=== PATIENT | male | born 1950 | race Caucasian/White ===

== ENCOUNTER 2024-04-04 21:36 | Inpatient (IN) | payer MEDICARE, OTHER, SELFPAY ==
[2024-04-04 16:07] VITALS: BP 135/73
[2024-04-04 16:15] VITALS: BMI 25.1
[2024-04-04 16:45] LABS: % Basophils 0.4 % (0-2); % Eosinophils 0.1 % (0-6); % Immature Granulocytes 0.5 % (0-0.5); % Lymphocytes 1.2 % (20.5-51.1); % Monocytes 4.2 % (1.7-9.3); % Neutrophils 93.6 % (42.2-75.2); Absolute Immature Granulocytes 0.1 10^3/uL (0-0.05); Absolute Lymphocytes 0.1 10^3/uL (1.2-3.4); Absolute Monocytes 0.4 10^3/uL (0.1-0.6); Absolute Neutrophils 9.6 10^3/uL (1.4-6.5); Hematocrit 37.2 % (39.0-52.0); Hemoglobin 12.3 g/dL (13.0-18.0); Mean Corp Hgb Conc. 33.1 g/dL (33.0-37.0); Mean Corpuscular Hgb 27.1 pg (27.0-31.0); Mean Corpuscular Volume 81.9 fL (80.0-94.0); Nucleated Red Blood Cells % 0 % (-); Platelet Count 215 10^3/uL (130-400); Red Blood Cell Count 4.54 10^6/uL (4.70-6.10); Red Cell Dist. Width 14.7 % (11.5-14.5); White Blood Cell Count 10.3 10^3/uL (4.8-10.8)
[2024-04-04 16:58] LABS: ALT (SGPT) 24 U/L (0-50); AST (SGOT) 26 U/L (17-59); Albumin 4.5 g/dl (3.5-5.0); Alkaline Phosphatase 66 U/L (38-126); Blood Urea Nitrogen 26 mg/dl (9-20); Calcium 9.5 mg/dl (8.4-10.2); Carbon Dioxide 19 mmol/L (22-30); Chloride 101 mmol/L (98-107); Estimated Creatinine Clearance 55 ml/min; Glucose 348 mg/dl (70-99); Potassium 5.3 mmol/L (3.5-5.1); Sodium 135 mmol/L (135-145); Total Bilirubin 0.9 mg/dl (0.2-1.3); eGFR 57.65
[2024-04-04 17:00] VITALS: BP 123/69
[2024-04-04 17:10] LABS: COVID-19 Antigen Negative (Negative)
[2024-04-04] MEDS: NSS 1000 IV ×2 (17:54→19:53)
[2024-04-04 18:00] VITALS: BP 118/60
--- NOTE | 2024-04-04 18:01 | ED.GENMED ---
History of Present Illness
General
Chief Complaint: Abdominal Symptoms
Source: patient and spouse
Exam Limitations: none
Time Seen by Provider: 04/04/24 17:40
Nursing documentation reviewed up to this point in time: agreed with
History of Present Illness
History of Present Illness:
73-year-old male with a past medical history of hypertension, hyperlipidemia, diabetes who presents to the ER for evaluation of abdominal pain. Patient reports rather abrupt onset around 4 AM and have been constant throughout the day. He reports
pain in the left lower quadrant does not radiate. No clear exacerbating or relieving factors noted. He reports associated nausea, vomiting, diarrhea�nonbloody. He denies any fever or chills. He denies any urinary symptoms. He denies having had
similar symptoms in the past. He denies any prior history of abdominal surgery although chart mentions history of hernia repair on the left.
Past History
Past History
ED Past Medical History: GERD, HTN, Hypercholesterolemia, IDDM and NIDDM
ED Past Surgical History: Other (Inguinal hernia repair)
Social History
Tobacco: Non-smoker
Drug: None
Personal:
Living: alone
Employment: Retired
Family History
Family History: Other (Noncontributory)
Review of Systems
Review of Systems
All Other Systems: ROS reviewed and negative except as documented in HPI and ROS
Constitutional: Denies fever or chills
Respiratory: Denies cough or trouble breathing
Cardiac: Denies chest pain
ABD/GI: Reports abdominal pain, nausea, vomiting and diarrhea; Denies bloody stools or black stools
: Denies dysuria, frequency or flank pain
Musculoskeletal: Denies neck pain or back pain
Neurological: Denies dizzy or headache
Phy Exam
Physical Exam
Physical Exam:
General: Awake, alert, oriented x3; no acute distress
Head: Normocephalic, atraumatic
Eyes: Conjunctiva normal, sclera anicteric
Throat: Airway intact, dry mucous membranes
Neck: Trachea midline, supple without meningismus
Lungs: Clear to auscultation bilaterally, no wheezing, rales, rhonchi
Heart: Tachycardia with regular rhythm, no murmurs, gallops, or rubs
Abd: Soft, non distended, focally tender in the left lower quadrant with no peritoneal signs, no abdominal masses
Back: No CVA tenderness
Neuro: No gross deficit
Extremities: Warm and well-perfused
Scores
Heart Failure Risk
Heart Failure Risk Score: Not Applicable
Heart Score for Chest Pain Patients
STEMI patient?: Not applicable
Withdrawal Assessment of Alcohol
Withdrawal Assessment Completed?: Not applicable
Course
Orders/Labs/Results
Orders:
Orders
04/04/24 16:09
EKG [Electrocardiogram (*1)] Urgent
Reason for Study: Fatigue / Weakness
EKG- Treatment ONCE
04/04/24 16:31
COVID-19 Antigen Urgent
Source: Nasal Swab
Complete Blood Count/With Diff Urgent
Comprehensive Metabolic Panel Urgent
Lipase Urgent
INF RAPID [Influenza A+B Rapid Molecular] Urgent
MICHAEL Source: Nasal Swab
Specimen Description:
Date Specimen was Collected: 04/04/24
Time Specimen was Collected: 16:27
04/04/24 17:45
Add On- LAB Urgent
Tests Added?: lipase
0.9% Sodium Chloride 1000 ml [Nss] 1,000 ml IV BOLUS
04/04/24 18:01
CT Abd/pelvis W Iv Cont Urgent
Comment:
Reason For Exam: LLQ abd pain and tenderness
04/04/24 19:38
Morphine Sulfate 4 mg IV NOW STA
Ondansetron Injectable [Zofran] 4 mg IV NOW STA
04/04/24 19:45
0.9% Sodium Chloride 1000 ml [Nss] 1,000 ml IV 125 mls/hr
Abnormal Lab Results
04/04/24
16:31
RBC 4.54 L 10^6/uL
(4.70-6.10)
Hgb 12.3 L g/dL
(13.0-18.0)
Hct 37.2 L %
(39.0-52.0)
RDW 14.7 H %
(11.5-14.5)
Abs Immat Gran (auto) 0.1 H 10^3/uL
(0-0.05)
Absolute Neuts (auto) 9.6 H 10^3/uL
(1.4-6.5)
Absolute Lymphs (auto) 0.1 L 10^3/uL
(1.2-3.4)
Neutrophils % 93.6 H %
(42.2-75.2)
Lymphocytes % 1.2 L %
(20.5-51.1)
Potassium 5.3 H mmol/L
(3.5-5.1)
Carbon Dioxide 19 L mmol/L
(22-30)
BUN 26 H mg/dl
(9-20)
Glucose 348 H mg/dl
(70-99)
04/04/24 16:31
04/04/24 16:31
Vital Signs
Initial and Last Documented VS:
Initial Vital Signs
Temp Pulse Resp BP Pulse Ox
37.9 C 114 26 135/73 97
04/04/24 16:07 04/04/24 16:07 04/04/24 16:07 04/04/24 16:07 04/04/24 16:07
Last Documented Vital Signs
Temp Pulse Resp BP Pulse Ox
37.9 C 112 22 118/60 95
04/04/24 16:07 04/04/24 18:00 04/04/24 18:00 04/04/24 18:00 04/04/24 18:00
MDM/Problems Addressed
Differential Diagnosis Includes:
Diverticulitis, UTI/pyelonephritis, nephrolithiasis, colitis, AAA less likely
MDM/Problems Addressed:
73-year-old male presents to the emergency room for evaluation of abdominal pain associate with nausea, vomiting, diarrhea started this morning has been constant. Tachycardic mild tachypnea otherwise normal vitals. Physical exam as above�notably
focally tender in the left lower quadrant. He had labs sent in triage including a CBC which shows top normal WBC with predominant neutrophils. CMP shows slight metabolic acidosis none anion gap likely from GI losses. He does have hyperglycemia
348. Potassium 5.3 marginally elevated. He is negative for COVID and flu. Will send for a CT abdomen pelvis. Check urinalysis. Treat pain and provide fluid resuscitation. Reassess after the above
CT abdomen pelvis shows signs consistent with acute gastroenteritis. Clinical reassessment patient still having pain, nausea�treat symptomatically. Heart rate remains elevated currently 112 despite IV fluids. He still appears mildly dehydrated.
Will continue with fluid resuscitation, admit for symptomatic treatment and continue fluids for acute dehydration in the setting of gastroenteritis. Case discussed with hospitalist.
*Radiology
Radiology exam reviewed: radiology read reviewed
*Pulse Oximetry
Patient hypoxic: no
*EKG
Interpreted by ED Provider?: Yes
Heart Rate: 116
Rate: tachycardiac
Rhythm: sinus and sinus tachycardia
Emmett: normal axis
Interval: normal interval and normal QT interval
QRS Pattern: normal QRS
Ischemia: no ischemia
*Critical Care Note
Total Time (30-74mins, 75-104mins- exclusive of procedures): Not Applicable
Data Reviewed
Review of Other/Old Records Reveals: Labs and Records
Source: patient and significant other
Patient Management
Discussion with other providers: Hospitalist (Discussed with hospitalist)
Escalation/DeEscalation of care consider admission/obs:
Admission indicated
ED Attending Note
-
Portions of this chart may have been created with voice recognition software.� Occasional wrong word or��sound alike� substitutions may have occurred due to the inherent limitations of voice recognition software.
Discharge Plan
Departure
Patient Disposition: Admit
Date of Disposition: 04/04/24
Time of Disposition: 19:47
Admit to doctor: Musa
Presentation/result/management discussed w/ accepting MD/DO: Hospitalist
Discharge Problem:
Acute dehydration, Acute hyperglycemia, Acute gastroenteritis
Prescriptions:
No Action
multivitamin Tablet
1 tab PO DAILY
metformin 500 mg Tablet
1,000 mg PO BID
lisinopril 20 mg Tablet
20 mg PO QPM
calcium carbonate 500 mg calcium (1,250 mg) Tablet
1,000 mg PO DAILY
pantoprazole 40 mg Tablet,Delayed Release (Dr/Ec)
40 mg PO DAILY
diphenhydramine HCl [Allergy] 25 mg Tablet
25 mg PO DAILY
sertraline 25 mg Tablet
25 mg PO DAILY
aspirin 81 mg Tablet,Chewable
81 mg PO QPM
iron 18 mg Tablet
65 mg PO DAILY
rosuvastatin 20 mg Tablet
20 mg PO DAILY
omega 0-pbp-gyx-fish oil [Fish Oil] 1,200 (144-216) mg Capsule
1 cap PO DAILY
insulin glargine [Lantus U-100 Insulin] 100 unit/mL Solution
50 unit SC QPM
epinephrine 0.3 mg/0.3 mL Auto-Injector
0.3 mg IM ONCE
Patient Comments:
pt states he never used yet, only needed in case of bee sting
ascorbic acid (vitamin C) [Vitamin C] 1,000 mg Tablet
1,000 mg PO DAILY
biotin 10,000 mcg Tablet,Chewable
10,000 mcg PO
ibuprofen 200 mg tablet
400 mg PO Q6HPRN PRN (Reason: moderate pain) Qty: 1 0RF
tramadol 50 mg tablet
50 mg PO Q6HPRN PRN (Reason: severe pain/breakthrough pain) Qty: 5 0RF
acetaminophen [Tylenol Extra Strength] 500 mg tablet
1,000 mg PO Q6HPRN PRN (Reason: mild pain) Qty: 1 0RF
ibuprofen 800 mg tablet
800 mg PO QIDPRN PRN (Reason: pain, fever) Qty: 30 0RF
Referrals:
Maxwell Mendoza MD [Family Provider] -
Interventions
Interventions:
*Risk Screen - Suicide Last Done: 04/04/24 17:22
*General Assessment Last Done: 04/04/24 17:22
*Neglect/Abuse Screening Last Done: 04/04/24 17:22
*ED COVID-19 Vaccine History Last Done: 04/04/24 16:07
UD-Sllpfe-Ukbgbellzl Assessment Last Done: 04/04/24 17:24
Discharge Date and Time
Print Language: NAURUAN
[2024-04-04 18:31] LABS: Lipase 73 U/L (23-300)
[2024-04-04] MEDS: ZOFRAN 4 MG IV (19:42)
[2024-04-04] MEDS: MORPHINE SULFATE 4 MG IV (19:42)
[2024-04-04] MEDS: TYLENOL 650 MG PO (20:03)
--- NOTE | 2024-04-04 20:10 | EDRN ---
Report received, introduced myself to patient, he had asked for pain meds, medicated as ordered by Dr. Colin, Dr. colin also back in to talk to patient about results and patient wants to stay, patient did ambulate to the restroom and back in bed,
re-checked patients temperature which was elevated, informed Dr. Colin and gave meds as ordered. Otherwise patient resting comfortably at this time.
--- NOTE | 2024-04-04 20:11 | HPS.HSE ---
Family Physician
-
Family Physician: Maxwell Mendoza
Chief Complaint
-
abdominal discomfort
History of Present Illness
Patient is a 73-year-old male with past medical history significant for hypertension, hyperlipidemia, CKD, iron deficiency anemia, DM II, and BPH who presented to [place] [facility] ED for evaluation of abdominal discomfort. Patient stated he woke up early
this morning at approximately 0430 with abdominal pain associated with nausea, emesis and diarrhea. He reports pain in the lower quadrants and does not radiate. Patient reports episode of the chills but unaware if he was febrile. He states he had
multiple episodes of emesis and diarrhea when he became significantly week and had EMS come to transport him for evaluation. Patient denies any aggravating or alleviating factors. Denies cough, shortness of breath, constipation or urinary symptoms.
Medical History
Past Medical History
Past Medical History: Reports Other
Additional Past Medical History:
hypertension
hyperlipidemia
CKD
iron deficiency anemia
DM II
BPH
Past Surgical History: Reports Other
Additional Past Surgical History:
inguinal hernia repair
Social History
Tobacco: Non-smoker
Alcohol: Occasional
Drug: None
Personal: Single
Living: With Roomate (girlfriend)
Employment: Retired
Family History
Family History: Not pertinent
Allergies / Home Medications
Allergies reflects when Allergies were last updated in [facility].
Home Medications with original date entered in [facility]
Allergy/Medication List:
Allergies
Allergy/AdvReac Type Severity Reaction Status Date / Time
bee pollen Allergy Anaphylaxis Verified 01/26/23 00:15
bee venom protein (honey bee) Allergy Anaphylaxis Verified 01/26/23 00:15
Home Medications
aspirin 81 mg chewable tablet 81 mg PO HS 04/28/22
calcium carbonate 500 mg PO DAILY 04/28/22
insulin glargine 100 unit/mL subcutaneous solution (Lantus U-100 Insulin) 20 - 28 unit SC HS 04/28/22
lisinopril 20 mg tablet 20 mg PO HS 04/28/22
omega 8-sbq-igy-fish oil 1,200 mg (144 mg-216 mg) capsule (Fish Oil) 1 cap PO DAILY 04/28/22
pantoprazole 40 mg tablet,delayed release 40 mg PO DAILY 04/28/22
rosuvastatin 20 mg tablet 20 mg PO DAILY 04/28/22
ascorbic acid (vitamin C) 1,000 mg tablet (Vitamin C) 1,000 mg PO DAILY 05/01/22
metformin 500 mg tablet,extended release 24 hr 1,000 mg PO BID 04/04/24
sildenafil 100 mg tablet 100 mg PO DAILYPRN PRN ed 04/04/24
therapeutic multivitamin 1 tab PO DAILY 04/04/24
Review of Systems
-
History Source: Patient
Constitutional: Reports Fatigue and Chills
EENT: Reports No Symptoms
Respiratory: Reports No Symptoms
Cardiac: Reports No Symptoms
Abdomen/GI: Reports Abdominal Pain, Nausea, Vomiting and Diarrhea
: Reports No Symptoms
Musculoskeletal: Reports No Symptoms
Skin: Reports No Symptoms
Neurological: Reports No Symptoms
Endocrine: Reports No Symptoms
Hematologic/Lymphatic: Reports No Symptoms
Psych: Reports No Symptoms
Physical Exam
Vital Signs
Vital Signs
Temp Pulse Resp BP Pulse Ox
102.5 F H 112 22 118/60 95
04/04/24 19:54 04/04/24 18:00 04/04/24 18:00 04/04/24 18:00 04/04/24 18:00
Physical Exam
General: Well Developed, Well Nourished and No Apparent Distress
HEENT: NormoCephalic, Moist mucous membranes, Atraumatic, [place] Conjunctivae, Nose Appears Normal and Ears Appear Normal
Respiratory: Clear and Non Labored Respirations
Cardiac: S1/S2 and Regular Rhythm; No Murmur, Rub or Gallop
Breast: Deferred by me
GI: Soft, Tender and Distended; No Organomegaly
Rectal: Deferred by Provider
Genito-urinary: Deferred by me
Musculoskeletal: No Clubbing, No Cyanosis and No Edema
Skin: Warm and IV/Catheter Site
Neuro: Awake, Alert, AO x 3 and Nonfocal/grossly intact
Psych: Calm and Intact Judgment/Insight
Laboratory Results
-
04/04/24 16:31
04/04/24 16:31
Laboratory Results
Total Bilirubin 0.9 mg/dl (0.2-1.3) 04/04/24 16:
AST 26 U/L (17-59) 04/04/24 16:31
ALT 24 U/L (0-50) 04/04/24 16:31
Alkaline Phosphatase 66 U/L (38-126) 04/04/24 16:31
Lipase 73 U/L (23-300) 04/04/24 16:31
Impression/Plan
-
IMPRESSION/PLAN:
#gastroenteritis
Abd/Pelvis: 1. MODERATE-SIZED SLIDING-TYPE HIATAL HERNIA distended with fluid. Mild to moderate fluid distention of the stomach. Mild fold thickening and distention of jejunal small bowel loops. The appearance is most suggestive of an ACUTE
GASTROENTERITIS.
2. Moderate diffuse hepatic steatosis.
3. Mild splenomegaly.
4. 2 mm nonobstructing left intrarenal calculus.
5. Moderate calcific atherosclerotic plaque in the abdominal aorta.
Covid and Influenza: negative
- Admit to med/surg
- IVF
- antiemetics
- daily IV PPI
- clear liquids
#hypertension
- continue lisinopril
#hyperlipidemia
- continue rosuvastatin
#DM II
- AccuChecks AC & HS
- SSI
- Lantus 20u qHS
#CKD
BUN 26, Creat 1.3
#iron deficiency anemia
Hgb 12.3, Hct 37.2
- monitor H/H
#BPH
Code Status: Full Code
DVT Prophylaxis: Lovenox Sq
--- NOTE | 2024-04-04 20:23 | W.PN.UPDATE ---
Update Note
Progress Note Update
Patient sitting condition with LEHR CUTTER. I concur with her findings on history and physical. I agree with the assessment and plan unless stated otherwise.
Briefly, this is a 73-year-old with past medical history significant for insulin-dependent diabetes, hypertension, hyperlipidemia, CKD stage III, status post left inguinal hernia repair who presents to the emergency department with a 1 day history
of abdominal pain and nausea vomiting and diarrhea.
Patient reports abrupt onset of epigastric and supraumbilical abdominal pain then associated nausea and vomiting. She reported that she had a brownish bilious vomiting. She also reported that she had brown stools during followed by diarrhea. He
reports of multiple episodes of emesis and inability to tolerate p.o. with associated weakness, chills but no nirmal fevers at home. He then had to sit on the commode for several hours of having diarrheal bowel movements every 30 minutes. [place]
slightly dizzy and lightheaded and decided come to the emergency department for evaluation.
Patient denies any recent travels or sick contacts. He denies any recent antibiotic use. Denies contacts with any minors.
In the emergency department he had a Tmax of 102.5, he was tachycardic to 112, blood pressure was 120/60. White count was 10.3, hemoglobin 12.3 with a platelet count of 215. Electrolytes were mostly stable with a potassium of 5.3, a bicarb of 19
with no anion gap, BUN was 26 and creatinine 1.3 unknown baseline. Glucose was 348. ECG shows sinus tachycardia at rate of 111. CT of the abdomen pelvis showed moderate sliding-type hiatal hernia distended with fluid, mild to moderate fluid
distention of the stomach, mild fold thickening and distention of the jejunal small bowel loops which is consistent with acute gastroenteritis.
1. Gastroenteritis - Complicated by fever and weakness.
- admit to med/surg
- stool culture, cdiff and norovirus
- check occult stool
- hold on abx pending stool norovirus
- blood cultures
- check chest xray to eval for aspiration
- antiemetics, pain control
- IV fluids, s/p 2 L NS in ED, continue with 1/2 NS + 75 bicarb given small intestinal losses
- repeat lytes in 4 hours
- ppi iv daily
2. Hyperglycemia - gluc 348, no anion gap.
- check lactate and beta HB
- IV fluids
- clear liquid diet for now
- insulin 5 units x 1
- aspart achs
- lantus hs starting tomorrow
- hold metformin x 48 hours
DVT PPX - lovenox sq
Code status - full code
[2024-04-04 21:34] LABS: Lactic Acid 2.4 mmol/L (0.7-2.0)
[2024-04-04 21:47] LABS: B-Hydroxybutyrate 0.18 mmol/L (0.02-0.27)
--- NOTE | 2024-04-04 23:14 | PTCARENOTE ---
Pt brought to room 322 via stretcher from ED. Pt AAOx3, able to walk into room safely. Pt oriented to room, call odonnell within reach, able to make needs known. Will continue to monitor pt.
[2024-04-04] MEDS: LOW STRENGTH ASPIRIN 81 MG PO (23:20)
[2024-04-04] MEDS: ZESTRIL 20 MG PO (23:21)
[2024-04-05 00:24] VITALS: BP 120/64; BMI 25.3
[2024-04-05 00:56] LABS: Hematocrit 34.2 % (39.0-52.0); Hemoglobin 11.2 g/dL (13.0-18.0); Mean Corp Hgb Conc. 32.7 g/dL (33.0-37.0); Mean Corpuscular Hgb 27.3 pg (27.0-31.0); Mean Corpuscular Volume 83.4 fL (80.0-94.0); Mean Platelet Volume 9.9 fL (7.4-10.4); Platelet Count 181 10^3/uL (130-400); White Blood Cell Count 6.5 10^3/uL (4.8-10.8)
[2024-04-05] MEDS: NSS 1000 IV ×4 (01:11→20:31)
[2024-04-05 01:16] LABS: Lactic Acid 1.6 mmol/L (0.7-2.0)
[2024-04-05 01:22] LABS: Blood Urea Nitrogen 25 mg/dl (9-20); Calcium 7.9 mg/dl (8.4-10.2); Carbon Dioxide 22 mmol/L (22-30); Chloride 103 mmol/L (98-107); Estimated Creatinine Clearance 51 ml/min; Glucose 206 mg/dl (70-99); Potassium 4.9 mmol/L (3.5-5.1); Sodium 136 mmol/L (135-145); eGFR 52.74
[2024-04-05 03:34] LABS: Urine Albumin Trace (Neg - Trace); Urine Bilirubin Negative (Negative); Urine Character Clear (Clear); Urine Color Yellow; Urine Glucose 1+ (Negative); Urine Ketone Trace (Negative); Urine Leukocyte Negative (Negative); Urine Nitrite Negative (Negative); Urine Occult Blood Negative (Negative); Urine Specific Gravity 1.015 (<1.030); Urine Urobilinogen Negative (Neg - 1+)
[2024-04-05 05:39] VITALS: BMI 25.3
[2024-04-05 06:31] LABS: Hemoglobin 10.6 g/dL (13.0-18.0); Mean Corp Hgb Conc. 32.1 g/dL (33.0-37.0); Mean Corpuscular Volume 84.2 fL (80.0-94.0); Mean Platelet Volume 9.8 fL (7.4-10.4); Platelet Count 181 10^3/uL (130-400); Red Blood Cell Count 3.92 10^6/uL (4.70-6.10); Red Cell Dist. Width 15.1 % (11.5-14.5); White Blood Cell Count 6.2 10^3/uL (4.8-10.8)
[2024-04-05 06:47] LABS: Blood Urea Nitrogen 24 mg/dl (9-20); Calcium 8.1 mg/dl (8.4-10.2); Carbon Dioxide 24 mmol/L (22-30); Chloride 102 mmol/L (98-107); Estimated Creatinine Clearance 51 ml/min; Glucose 206 mg/dl (70-99); Potassium 4.5 mmol/L (3.5-5.1); Sodium 135 mmol/L (135-145); eGFR 52.74
[2024-04-05 07:05] VITALS: BP 135/77
[2024-04-05 07:35] LABS: Hepatitis C Antibody Negative (Negative)
[2024-04-05 07:52] LABS: Glucose - Point of Care 204 mg/dl (70-99)
[2024-04-05] MEDS: PROTONIX IV 40 MG IV (08:54)
[2024-04-05] MEDS: CRESTOR 20 MG PO (08:55)
[2024-04-05] MEDS: VITAMIN C 1000 MG PO (08:55)
[2024-04-05] MEDS: NSS (PRESERVATIVE FREE) 10 ML IV (08:55)
[2024-04-05] MEDS: OSCAL CAL 500 500 MG PO (08:55)
[2024-04-05] MEDS: THERAGRAN 1 TABLET PO (08:55)
[2024-04-05 09:04] LABS: Glycohemoglobin (HgbA1c) 7.1 % (4.0-5.6)
[2024-04-05] MEDS: NOVOLOG FLEXPEN-LOW RESISTANCE 2 UNITS SC (10:06)
--- NOTE | 2024-04-05 11:24 | W.PN.HOSP.TC ---
Today's Communication/Plan
-
f/w GI recommendations
Stool testing
Isolation
Reduce IVF to 100 cc/ hour.
Add Lantus
Assessment / Plan
Assessment / Plan
Physical Exam
General: Well Developed, Well Nourished and No Apparent Distress
HEENT: NormoCephalic, Moist mucous membranes, Atraumatic, [place] Conjunctivae, Nose Appears Normal and Ears Appear Normal
Respiratory: Clear and Non Labored Respirations
Cardiac: S1/S2 and Regular Rhythm
GI: Soft, left sided mild Tender and not Distended;
Genito-urinary: no hematuria.
Musculoskeletal: No Clubbing, No Cyanosis and No Edema
Skin: Warm and IV/Catheter Site
Neuro: Awake, Alert, AO x 3 and Nonfocal/grossly intact
Psych: Calm and Intact Judgment/Insight
#Acute gastroenteritis
Covid and Influenza: negative
c/w supportive care with IVF
- antiemetics
- daily IV PPI
- clear liquids
- await stool testing. no hx of recent AB use, denies sick contact.
- Isolation precautions.
Consult GI, help appreciated.
# Primary hypertension
- continue lisinopril
#hyperlipidemia
- continue rosuvastatin
#DM II
uncontrolled, hold Metformin while acutely ill
c/w ISS, Add Lantus
#CKD IIIb
BUN 26, Creat 1.3
#Anemia of chronic disease.
#BPH
Monitor for retention .
Code Status: Full Code
DVT Prophylaxis: Lovenox Sq
Total time spent to see the patient, examine the patient, review data and lab results, discuss treatment plan with patient and nursing staff around 55 minutes
Anticipated Discharge: > 48 hours
Subjective/Interval History
-
Date of Service: April 05, 2024
Still diarrhea but he feels better
less left sided abdominal discomfort
Objective Data
-
Labs:
Laboratory Results
04/05/24 04/05/24
00:43 06:04
WBC 6.5 6.2
Hgb 11.2 L 10.6 L
Hct 34.2 L 33.0 L
Plt Count 181 181
Sodium 136 135
Potassium 4.9 4.5
Chloride 103 102
Carbon Dioxide 22 24
BUN 25 H 24 H
Creatinine 1.4 H 1.4 H
Glucose 206 H 206 H
Calcium 7.9 L D 8.1 L
Vital Signs:
Vital Signs
Temp Pulse Resp BP Pulse Ox
99.5 F 105 18 135/77 97
04/05/24 07:05 04/05/24 07:05 04/05/24 07:05 04/05/24 07:05 04/05/24 07:05
I&O
04/04/24 04/05/24 04/06/24
06:59 06:59 06:59
Intake Total 120 / 120
Balance 120 / 120
--- NOTE | 2024-04-05 11:36 | CON.GI ---
Addendum entered and electronically signed by Dallas Chacko MD 04/05/24 15:53:
I saw and examined the patient.
The FIXING MACHINE OPERATOR's note was reviewed and I agree with the note.
-sudden onset nausea/vomiting/diarrhea/abdominal pain
-CT with moderate HH distended with fluid, fluid distention in stomach and mild thickening and distention of jejunal loops suggest acute gastroenteritis
-chronic diarrhea with metformin use
-Fatty liver. Liver test/platelets normal
other med problems:
-DM
-colon polyps
-HTN
-hyperlipidemia
-CKD
-BPH
-inguinal hernia repair
plan
Stool testing positive for norovirus. Patient clinically feeling better. Recommend supportive care with IV hydration.
Antiemetics as needed
Okay to start on liquid diet and advance as tolerated to lactose-free low-fat diet
If intractable vomiting will recommend NG tube for suction
Will recommend follow-up with GI as outpatient for fatty liver
No further recommendation at this point. Will sign off. Please call us back if any questions
Original Note:
Consultation
-
Date/Time Consultation Requested: 04/05/24 0630
Date/Time Consultation Performed: 04/05/24 1130
Requesting Provider: Teri Soler MD
Performing Provider: JAGRUTI Mendoza, Dallas Chacko MD
Reason for Consultation: abdominal pain
Medical History
Chief Complaint / HPI
Chief Complaint: abdominal pain
History of Present Illness:
Pt is a 73yo with hx colon polyps, HTN, hyperlipidemia, CKD, GRETCHEN, DM type II, BPH, inguinal hernia repair with sudden onset of abdominal pain with nausea, vomiting and diarrhea since 04/04. On admission CT with moderate HH distended with fluid,
fluid distention in stomach and mild thickening and distention of jejunal loops suggest acute gastroenteritis. Also noted fatty liver, mild splenomegaly, renal stone. calcific abdominal aorta.
In review with patient he denies recent sick contact, travel or antibiotic use. He admits to continued symptoms since admission with less vomiting but persistent abdominal pain and nausea. He does have chronic diarrhea with metformin use and
hbgA1C runs around 7 range. He denies odynophagia, dysphagia, GERD, constipation, or rectal bleeding. Rare NSAID use. No anticoagulation use. No GPL1 use.
Past Medical History
Past Medical History: HTN, Hypercholesterolemia, NIDDM, Renal Failure (CKD) and Other (GRETCHEN,BPH, colon polyps)
Past Surgical History: Other (inguinal hernia repair)
Social History
Tobacco: Non-Smoker
Alcohol: None
Drug: None
Personal: Other (girlfriend )
Living: Other (girlfriend )
Employment: Retired
Family History
Family History: Other (no family hx )
Allergies / Home Medications
Allergy/AdvReac Type Severity Reaction Status Date / Time
bee pollen Allergy Anaphylaxis Verified 01/26/23 00:15
bee venom protein (honey bee) Allergy Anaphylaxis Verified 01/26/23 00:15
�Medication �Instructions �Recorded
aspirin 81 mg chewable tablet 81 mg PO HS 04/28/22
calcium carbonate 500 mg PO DAILY 04/28/22
insulin glargine 100 unit/mL 20 - 28 unit SC HS 04/28/22
subcutaneous solution (Lantus
U-100 Insulin)
lisinopril 20 mg tablet 20 mg PO HS 04/28/22
omega 7-wjf-put-fish oil 1,200 mg 1 cap PO DAILY 04/28/22
(144 mg-216 mg) capsule (Fish Oil)
pantoprazole 40 mg tablet,delayed 40 mg PO DAILY 04/28/22
release
rosuvastatin 20 mg tablet 20 mg PO DAILY 04/28/22
ascorbic acid (vitamin C) 1,000 mg 1,000 mg PO DAILY 05/01/22
tablet (Vitamin C)
metformin 500 mg tablet,extended 1,000 mg PO BID 04/04/24
release 24 hr
sildenafil 100 mg tablet 100 mg PO DAILYPRN PRN ed 04/04/24
therapeutic multivitamin 1 tab PO DAILY 04/04/24
Review of Systems
-
History Source: Patient
Constitutional: Reports Weight Loss ( 5 lbs unitentional )
EENT: Reports No Symptoms
Respiratory: Reports No Symptoms
Cardiac: Reports No Symptoms
Abdomen/GI: Reports Abdominal Pain, Nausea, Vomiting and Diarrhea (acute on chronic )
: Reports No Symptoms
Musculoskeletal: Reports No Symptoms
Skin: Reports No Symptoms
Neurological: Reports Weakness
Endocrine: Reports No Symptoms
Hematologic/Lymphatic: Reports No Symptoms
Vital Signs
Temp Pulse Resp BP Pulse Ox
99.5 F 105 18 135/77 97
04/05/24 07:05 04/05/24 07:05 04/05/24 07:05 04/05/24 07:05 04/05/24 07:05
Physical Exam
Exam
General: Well Developed and Well Nourished
HEENT: Normocephalic
Respiratory: Clear
Cardiac: Other (tachy)
GI: Soft, Tender (mid abdomen ) and Distended (minimal )
Musculoskeletal: No Clubbing and No Cyanosis
Skin: Warm and Dry
Neuro: Awake, Alert and AO x 3
Psych: Calm
Results
WBC 6.2 10^3/uL (4.8-10.8) 04/05/24 06:04
Hgb 10.6 g/dL (13.0-18.0) L 04/05/24 06:04
Hct 33.0 % (39.0-52.0) L 04/05/24 06:04
MCV 84.2 fL (80.0-94.0) 04/05/24 06:04
Plt Count 181 10^3/uL (130-400) 04/05/24 06:04
Absolute Neuts (auto) 9.6 10^3/uL (1.4-6.5) H 04/04/24 16:31
Sodium 135 mmol/L (135-145) 04/05/24 06:04
Potassium 4.5 mmol/L (3.5-5.1) 04/05/24 06:04
Chloride 102 mmol/L (98-107) 04/05/24 06:04
Carbon Dioxide 24 mmol/L (22-30) 04/05/24 06:04
BUN 24 mg/dl (9-20) H 04/05/24 06:04
Creatinine 1.4 mg/dL (0.7-1.3) H 04/05/24 06:04
Calcium 8.1 mg/dl (8.4-10.2) L 04/05/24 06:04
Total Bilirubin 0.9 mg/dl (0.2-1.3) 04/04/24 16:31
AST 26 U/L (17-59) 04/04/24 16:31
ALT 24 U/L (0-50) 04/04/24 16:31
Alkaline Phosphatase 66 U/L (38-126) 04/04/24 16:31
Lipase 73 U/L (23-300) 04/04/24 16:31
Hepatitis C Antibody Negative (Negative) 04/05/24 06:04
Diagnostic Image Results:
04/04/24 CT Abd/pelvis W Iv Cont
1. MODERATE-SIZED SLIDING-TYPE HIATAL HERNIA distended with fluid. Mild to moderate fluid distention of the stomach. Mild fold thickening and distention of jejunal small bowel loops. The appearance is most suggestive of an ACUTE GASTROENTERITIS.
2. Moderate diffuse hepatic steatosis.
3. Mild splenomegaly.
4. 2 mm nonobstructing left intrarenal calculus.
5. Moderate calcific atherosclerotic plaque in the abdominal aorta.
Prior GI Procedures:
EGD: 09/2021 [facility] - Normal esophagus.
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
short-segment Lopez's disease. Biopsied.
- 5 cm hiatal hernia.
- Mild antral gastritis. Biopsied for Helicobacter
pylori testing.
- Normal examined duodenum. Biopsied for evaluation of
celiac disease.
Colonoscopy: 09/2021 [facility] - The entire examined colon is normal.
- The examined portion of the ileum was normal. repeat 5 years
Assessment / Plan
-
Pt is a 73yo with hx colon polyps, HTN, hyperlipidemia, CKD, GRETCHEN, DM type II, BPH, inguinal hernia repair with sudden onset of abdominal pain with nausea, vomiting and diarrhea since 04/04. On admission CT with moderate HH distended with fluid,
fluid distention in stomach and mild thickening and distention of jejunal loops suggest acute gastroenteritis. Also noted fatty liver, mild splenomegaly, renal stone. calcific abdominal aorta. In review with patient he denies recent sick contact,
travel or antibiotic use. He admits to continued symptoms since admission with less vomiting but persistent abdominal pain and nausea. He does have chronic diarrhea with metformin use and hbgA1C runs around 7 range. He denies odynophagia,
dysphagia, GERD, constipation, or rectal bleeding. Rare NSAID use. No anticoagulation use. No GPL1 use.
-sudden onset nausea/vomiting/diarrhea/abdominal pain
-CT with moderate HH distended with fluid, fluid distention in stomach and mild thickening and distention of jejunal loops suggest acute gastroenteritis
-tachycardia
-chronic diarrhea with metformin use
other med problems:
-DM
-colon polyps
-HTN
-hyperlipidemia
-CKD
-BPH
-inguinal hernia repair
PLAN:
Etiology of symptoms with concern for infectious etiology such as norovirus, HH related as noted moderate with fluid on imaging, gastroparesis but also noted jejunal thickening and hbgA1C vs other
await norovirus testing
cont supportive care with IVF, diet advancement as tolerated
reviewed with patient if symptoms persist consider eventual OP MRE vs UGI series
optimize glucose control
antiemetics as needed
cont PPI
if recurrent vomiting consider NGT decompression
-
-
Thank you for consultation and allowing me to participate in the patient's care. Please call the environmental restoration planner GI physician during the after hours with any questions or concerns.
[2024-04-05 11:42] LABS: Glucose - Point of Care 335 mg/dl (70-99)
[2024-04-05] MEDS: LANTUS 0.15 UNITS SC (12:33)
[2024-04-05] MEDS: NOVOLOG FLEXPEN-LOW RESISTANCE SC (13:58)
[2024-04-05] MEDS: NOVOLOG FLEXPEN 15 UNITS SC (13:59)
[2024-04-05] MEDS: ZOFRAN 4 MG IV (14:03)
[2024-04-05 15:01] VITALS: BP 106/49
[2024-04-05 16:50] LABS: Glucose - Point of Care 202 mg/dl (70-99)
[2024-04-05] MEDS: LOVENOX 40 MG SC (17:36)
[2024-04-05 18:41] LABS: Glucose - Point of Care 188 mg/dl (70-99)
[2024-04-05] MEDS: NOVOLOG FLEXPEN-MODERATE RESISTANCE 1 UNITS SC (19:16)
[2024-04-05] MEDS: ZESTRIL 20 MG PO (21:04)
[2024-04-05] MEDS: LOW STRENGTH ASPIRIN 81 MG PO (21:04)
[2024-04-05 21:34] LABS: Glucose - Point of Care 209 mg/dl (70-99)
[2024-04-05 23:00] VITALS: BP 143/81
--- NOTE | 2024-04-06 02:11 | DOWNTIME ---
There was a [place] Client Minesweeping Officer Downtime on 04/06/2024 from 0100 to 04/06/2023 at 0205 . Downtime documentation of patient's care, including medication administrations, has been reconciled in the electronic record per guidelines. Refer to the
patient's paper chart under the miscellaneous tab to see printed paper medication records and downtime forms.
[2024-04-06] MEDS: NSS 1000 IV (05:24)
[2024-04-06 06:00] VITALS: BMI 25.7
[2024-04-06 07:17] LABS: Glucose - Point of Care 146 mg/dl (70-99)
[2024-04-06 07:23] LABS: Blood Urea Nitrogen 14 mg/dl (9-20); Calcium 8.4 mg/dl (8.4-10.2); Carbon Dioxide 25 mmol/L (22-30); Chloride 105 mmol/L (98-107); Estimated Creatinine Clearance 59 ml/min; Glucose 152 mg/dl (70-99); Potassium 4.3 mmol/L (3.5-5.1); Sodium 139 mmol/L (135-145); eGFR > 60.00
[2024-04-06 07:26] LABS: Hematocrit 29.1 % (39.0-52.0); Hemoglobin 9.5 g/dL (13.0-18.0); Mean Corp Hgb Conc. 32.6 g/dL (33.0-37.0); Mean Corpuscular Hgb 27.5 pg (27.0-31.0); Mean Corpuscular Volume 84.3 fL (80.0-94.0); Mean Platelet Volume 10.2 fL (7.4-10.4); Platelet Count 145 10^3/uL (130-400); Red Blood Cell Count 3.45 10^6/uL (4.70-6.10); Red Cell Dist. Width 15.2 % (11.5-14.5); White Blood Cell Count 3.4 10^3/uL (4.8-10.8)
[2024-04-06 07:30] VITALS: BP 146/76
[2024-04-06] MEDS: LANTUS 0.2 UNITS SC (09:17)
[2024-04-06] MEDS: CRESTOR 20 MG PO (09:18)
[2024-04-06] MEDS: OSCAL CAL 500 500 MG PO (09:18)
[2024-04-06] MEDS: PROTONIX IV 40 MG IV (09:18)
[2024-04-06] MEDS: NSS (PRESERVATIVE FREE) 10 ML IV (09:19)
[2024-04-06] MEDS: NOVOLOG FLEXPEN-MODERATE RESISTANCE SC (09:32)
--- NOTE | 2024-04-06 09:41 | W.PN.HOSP.TC ---
Today's Communication/Plan
-
Advance diet
Lantus
Likely dc later today or AM 04/07
Assessment / Plan
Assessment / Plan
Physical Exam
General: Well Developed, Well Nourished and No Apparent Distress
HEENT: NormoCephalic, Moist mucous membranes, Atraumatic, Norge Conjunctivae, Nose Appears Normal and Ears Appear Normal
Respiratory: Clear and Non Labored Respirations
Cardiac: S1/S2 and Regular Rhythm
GI: Soft, not Tender and not Distended;
Genito-urinary: no hematuria.
Musculoskeletal: No Clubbing, No Cyanosis and No Edema
Skin: Warm and IV/Catheter Site
Neuro: Awake, Alert, AO x 3 and Nonfocal/grossly intact
Psych: Calm and Intact Judgment/Insight
#Acute Noro virus gastroenteritis
Covid and Influenza: negative
Good clinical improvement, will try solid food
- antiemetics
- Isolation precautions.
Consult GI, help appreciated.
# Mild acute blood loss anemia and dilutional with known anemia of chronic disease due to CKD.
# Primary hypertension
- continue lisinopril
#hyperlipidemia
- continue rosuvastatin
#DM II
Better controlled, hold Metformin while acutely ill
c/w ISS, increase dose of Lantus
HGB A1C 7.1
Will recommend OP follow up, might consider adding Glipizide or Januvia to metformin.
#CKD IIIb
BUN 26, Creat 1.3
#BPH
Monitored for retention .
Code Status: Full Code
DVT Prophylaxis: Lovenox Sq
Total time spent to see the patient, examine the patient, review data and lab results, discuss treatment plan with patient and nursing staff around 57 minutes
Anticipated Discharge: Within 24 hours
Subjective/Interval History
-
Date of Service: April 06, 2024
He feels much better
Would like to try solid food, no nausea
Mild abd cramps at times.
Objective Data
-
Labs:
Laboratory Results
04/06/24
06:21
WBC 3.4 L
Hgb 9.5 L
Hct 29.1 L
Plt Count 145
Sodium 139
Potassium 4.3
Chloride 105
Carbon Dioxide 25
BUN 14
Creatinine 1.2
Glucose 152 H
Calcium 8.4
Vital Signs:
Vital Signs
Temp Pulse Resp BP Pulse Ox
98.1 F 74 16 146/76 99
04/06/24 07:30 04/06/24 07:30 04/06/24 07:30 04/06/24 07:30 04/06/24 07:30
I&O
04/05/24 04/06/24 04/07/24
06:59 06:59 06:59
Intake Total 120 / 120 2099
Balance 120 / 120 2099
[2024-04-06 10:37] LABS: Glucose - Point of Care 144 mg/dl (70-99)
--- NOTE | 2024-04-06 12:36 | CM ---
CM met with Kwame at bedside to complete IA. Kwame is , his SO is currently staying with him, but has her own home.
Kwame's home has 5 entry steps with kitchen and powder room on the data entry machine operator. Bedroom and bathroom are on the upper level with 8 steps to climb.
Kwame reports that he is (I) amb and adls, no DME, no hx of VN or SNF. He feels that he will be able to manage at home without any services. His brother will provide transport home at discharge.
Plan: Discharge to home with no needs.
PCP: Dr. Mendoza
Pharm: [facility] in [place]
--- NOTE | 2024-04-06 13:08 | PN.CDI ---
Addendum entered and electronically signed by Teri Soler MD 04/06/24 13:35:
Acute Norovirus Gastroenteritis Only, Without Systemic Illness
Original Note:
CDI
- -
CDI:
Physician Documentation Request
Admit Date: 04/04/24 21:36
Dear Doctor Karlene,
Clinical Indicators:
Patient admitted with Acute Norovirus Gastroenteritis.
Lactic acid level:
04/04/24
21:09
Lactic Acid 2.4 H
Temp on admission:
04/04/24
19:54
Temp 102.5 F H
HR/RR trend on admission:
04/04/24
16:07 04/04/24
17:00 04/04/24
17:30
Pulse 114 111 113
Resp Rate 26 23 26
04/04/24
18:00
Pulse 112
Resp Rate 22
Please clarify which of the following most accurately describes the status of the patient's infection:
Sepsis, POA
- Systemic manifestations of infection, with 2 or more SIRS criteria which include:
- Fever >100.4 degrees F or hypothermia < 96.8 degrees F
- Leukocytosis - WBC > 12,000 or leukopenia - WBC < 4,000 or > 10% bands
- Tachycardia > 90 beats per minute
- Tachypnea - RR > 20 breaths per minute or PaCO2 , 32mmHg
Source: Merck Manual 2013
Acute Norovirus Gastroenteritis Only, Without Systemic Illness
Other, please specify
Use of terms such as suspected, likely, concern for, or probable (associated with a specific diagnosis that is being evaluated, monitored, or treated as if it exists) are acceptable and can be coded in the inpatient setting, when documented at the
time of discharge.
Thank you,
Crystal Monge RN BSN
CDI Specialist
available via tiger text
Please use your independent medical judgment in providing your response.
[2024-04-06 13:47] LABS: Glucose - Point of Care 226 mg/dl (70-99)
[2024-04-06] MEDS: NOVOLOG FLEXPEN-MODERATE RESISTANCE 3 UNITS SC ×2 (13:48→19:32)
[2024-04-06 15:16] VITALS: BP 145/61
[2024-04-06 17:01] LABS: Glucose - Point of Care 231 mg/dl (70-99)
[2024-04-06] MEDS: LOVENOX 40 MG SC (19:32)
[2024-04-06 21:43] LABS: Glucose - Point of Care 219 mg/dl (70-99)
[2024-04-06 22:19] VITALS: BP 123/66
[2024-04-06] MEDS: LOW STRENGTH ASPIRIN 81 MG PO (22:56)
[2024-04-06] MEDS: ZESTRIL 20 MG PO (22:57)
[2024-04-06 23:59] VITALS: BP 146/73
[2024-04-07 06:40] LABS: Hematocrit 28.5 % (39.0-52.0); Hemoglobin 9.3 g/dL (13.0-18.0); Mean Corp Hgb Conc. 32.6 g/dL (33.0-37.0); Mean Corpuscular Hgb 27.2 pg (27.0-31.0); Mean Corpuscular Volume 83.3 fL (80.0-94.0); Mean Platelet Volume 10.1 fL (7.4-10.4); Platelet Count 154 10^3/uL (130-400); Red Blood Cell Count 3.42 10^6/uL (4.70-6.10); Red Cell Dist. Width 15.1 % (11.5-14.5); White Blood Cell Count 4.8 10^3/uL (4.8-10.8)
[2024-04-07 07:14] LABS: Blood Urea Nitrogen 12 mg/dl (9-20); Calcium 8.6 mg/dl (8.4-10.2); Carbon Dioxide 27 mmol/L (22-30); Chloride 104 mmol/L (98-107); Estimated Creatinine Clearance 65 ml/min; Glucose 197 mg/dl (70-99); Potassium 3.6 mmol/L (3.5-5.1); Sodium 136 mmol/L (135-145); eGFR > 60.00
[2024-04-07 07:30] VITALS: BP 156/89
[2024-04-07 08:27] LABS: Glucose - Point of Care 195 mg/dl (70-99)
--- NOTE | 2024-04-07 09:57 | W.PN.HOSP.TC ---
Today's Communication/Plan
-
dc
Assessment / Plan
Assessment / Plan
Physical Exam
General: Well Developed, Well Nourished and No Apparent Distress
HEENT: NormoCephalic, Moist mucous membranes, Atraumatic, [place] Conjunctivae, Nose Appears Normal and Ears Appear Normal
Respiratory: Clear and Non Labored Respirations
Cardiac: S1/S2 and Regular Rhythm
GI: Soft, not Tender and not Distended;
Genito-urinary: no hematuria.
Musculoskeletal: No Clubbing, No Cyanosis and No Edema
Skin: Warm and IV/Catheter Site
Neuro: Awake, Alert, AO x 3 and Nonfocal/grossly intact
Psych: Calm and Intact Judgment/Insight
#Acute Noro virus gastroenteritis
Covid and Influenza: negative
Good clinical improvement, tolerated diet, less BMs. No fevers.
- antiemetics
- Isolation precautions.
Consult GI, help appreciated.
# Mild acute blood loss anemia and dilutional with known anemia of chronic disease due to CKD.
# Primary hypertension
- continue lisinopril
#hyperlipidemia
- continue rosuvastatin
#DM II
Better controlled, hold Metformin while acutely ill
c/w ISS, increase dose of Lantus
HGB A1C 7.1
Recommended OP follow up, might consider adding Glipizide or Januvia to metformin.
# HH, no pain in chest , no reflux
c/w PPU
# Hepatic steatosis, advised to loose weight, f/w GI as OP.
#CKD IIIb
BUN 26, Creat 1.3
#BPH
Monitored for retention .
Code Status: Full Code
DVT Prophylaxis: Lovenox Sq
Total discharge time spent to see the patient, examine the patient, review data and lab results, discuss discharge plan with patient and nursing staff around 57 minutes
Anticipated Discharge: Today
Subjective/Interval History
-
Date of Service: April 07, 2024
he feels better, no fever or chills
No chest pain
No abdominal pain, tolerating diet well
Objective Data
-
Labs:
Laboratory Results
04/07/24
06:14
WBC 4.8
Hgb 9.3 L
Hct 28.5 L
Plt Count 154
Sodium 136
Potassium 3.6
Chloride 104
Carbon Dioxide 27
BUN 12
Creatinine 1.1
Glucose 197 H
Calcium 8.6
Vital Signs:
Vital Signs
Temp Pulse Resp BP Pulse Ox
98.4 F 77 18 156/89 98
04/07/24 07:30 04/07/24 07:30 04/07/24 07:30 04/07/24 07:30 04/07/24 07:30
I&O
04/06/24 04/07/24 04/08/24
06:59 06:59 06:59
Intake Total 2099 1440 / 1440
Balance 2099 1440 / 1440
[2024-04-07] MEDS: PROTONIX IV 40 MG IV (09:59)
[2024-04-07] MEDS: NSS (PRESERVATIVE FREE) 10 ML IV (09:59)
[2024-04-07] MEDS: LANTUS 0.2 UNITS SC (09:59)
[2024-04-07] MEDS: NOVOLOG FLEXPEN-MODERATE RESISTANCE 1 UNITS SC (10:01)
[2024-04-07] MEDS: OSCAL CAL 500 500 MG PO (10:01)
[2024-04-07] MEDS: CRESTOR 20 MG PO (10:01)
--- NOTE | 2024-04-07 14:03 | W.DCSUMMARY ---
Discharge Summary
Discharge Data
Date of Admission: 04/04/24
Date of Discharge: 04/07/24
-
Pending Results: No
Hospital Course
73 years old male who presented to the hospital with abdominal pain, nausea, vomiting and diarrhea. He had fever. Patient had a scan that showed moderate size hiatal hernia, mild thickening and distention of duodenal loop suggested acute
gastroenteritis. Patient tested positive for norovirus. He was treated with intravenous fluid and modified diet. Patient started to improve significantly with resolution of fever and abdominal discomfort. Patient did not have reflux and reported
pantoprazole was helping him. He tolerated diet well. Scan of the abdomen pelvis showed hepatic steatosis, patient was advised to lose weight, low-fat diet, avoid excessive alcohol intake and to follow-up with GI in the office. Patient had mild
renal sufficiency that resolved with intravenous fluid. He did not have urinary retention. Patient remained hemodynamically stable and was discharged home in a stable condition.
Discharge Plan
-
Patient Disposition: Home (Routine Discharge)
Discharge Diagnosis/Procedures: ACUTE NORO VIRUS INFECTION
CT showed
Hiatal hernia
- Moderate diffuse hepatic steatosis/ fatty liver, recommend weight loss, avoid excessive alcohol, GI follow-up, low-fat diet.
- Mild splenomegaly.
- 2 mm nonobstructing left intrarenal calculus.
- Moderate calcific atherosclerotic plaque in the abdominal aorta.
Diet: As tolerated and Low Fat
Referrals:
Maxwell Mendoza MD [Family Provider] - in one to two weeks
Dallas Chacko MD [Active] - (follow up with GI to discuss fatty liver noted on imaging during admission)
Prescriptions:
Continued
lisinopril 20 mg Tablet
20 mg PO HS
calcium carbonate 500 mg calcium (1,250 mg) Tablet
500 mg PO DAILY
pantoprazole 40 mg Tablet,Delayed Release (Dr/Ec)
40 mg PO DAILY
aspirin 81 mg Tablet,Chewable
81 mg PO HS
rosuvastatin 20 mg Tablet
20 mg PO DAILY
omega 8-jhn-qbu-fish oil [Fish Oil] 1,200 (144-216) mg Capsule
1 cap PO DAILY
insulin glargine [Lantus U-100 Insulin] 100 unit/mL Solution
20 - 28 unit SC HS
ascorbic acid (vitamin C) [Vitamin C] 1,000 mg Tablet
1,000 mg PO DAILY
therapeutic multivitamin Tablet
1 tab PO DAILY
sildenafil 100 mg Tablet
100 mg PO DAILYPRN PRN (Reason: ed)
metformin 500 mg Tablet Extended Release 24 Hr
1,000 mg PO BID
Discharge Orders:
Discharge Patient (As Directed); Ordered 04/07/24
Ordered By: Teri Soler
Discharge Date and Time
Discharge Date/Time: 04/07/24 11:12
Print Language: GABONESE
== END 2024-04-07 11:12 | disposition home or self-care (01) | DRG 392 ==
LOC: 3 WEST ACU 21:36
PROVIDERS: Nurse Practitioner Family; ADMITTING PHYSICIAN Internal Medicine; ATTENDING PHYSICIAN Internal Medicine; EMERGENCY PHYSICIAN Emergency Medicine; FAMILY PHYSICIAN Family Medicine; OTHER PHYSICIAN Internal Medicine Gastroenterology
DX: A08.11 Acute gastroenteropathy due to Norwalk agent (principal); Z11.52 Encounter for screening for COVID-19; N18.9 Chronic kidney disease, unspecified; I12.9 Hypertensive chronic kidney disease with stage 1 through stage 4 chronic kidney disease, or unspecified chronic kidney disease; E11.22 Type 2 diabetes mellitus with diabetic chronic kidney disease; E11.65 Type 2 diabetes mellitus with hyperglycemia; D50.9 Iron deficiency anemia, unspecified; N40.0 Benign prostatic hyperplasia without lower urinary tract symptoms; E78.00 Pure hypercholesterolemia, unspecified; K63.5 Polyp of colon; K76.0 Fatty (change of) liver, not elsewhere classified
CPT/HCPCS: 74177; 80048; 80053; 81003; 82010; 82962; 83036; 83605; 83690; 85025; 85027; 86803; 87040; 87324; 87449; 87502; 87798; 87811; 93005; 96361; 96374; 96375; 99285; Q9967

== ENCOUNTER → 2024-05-18 10:14 | Outpatient (REF) | payer MEDICARE, OTHER, SELFPAY | LOC: HWRCS 10:14 | PROVIDERS: ATTENDING PHYSICIAN Internal Medicine; FAMILY PHYSICIAN Family Medicine | DX: I10 Essential (primary) hypertension (principal); E78.5 Hyperlipidemia, unspecified; N18.31 Chronic kidney disease, stage 3a | CPT/HCPCS: 93306 ==